=== PATIENT | female | born 1985 | race Caucasian/White ===

== ENCOUNTER 2024-11-09 13:44 | Inpatient (IN) | payer OTHER, SELFPAY ==
[2024-11-08 18:51] VITALS: BP 135/86
[2024-11-08 19:14] LABS: % Basophils 0.3 % (0-2); % Eosinophils 2.3 % (0-6); % Immature Granulocytes 0.2 % (0-0.5); % Lymphocytes 35.5 % (20.5-51.1); % Monocytes 4.9 % (1.7-9.3); % Neutrophils 56.8 % (42.2-75.2); Absolute Eosinophils 0.1 10^3/uL (0-0.7); Absolute Monocytes 0.3 10^3/uL (0.1-0.6); Absolute Neutrophils 3.3 10^3/uL (1.4-6.5); Hematocrit 32.4 % (37.0-47.0); Hemoglobin 9.4 g/dL (12.0-16.0); Mean Corpuscular Hgb 20.5 pg (27.0-31.0); Mean Corpuscular Volume 70.6 fL (81.0-99.0); Mean Platelet Volume 9.1 fL (7.4-10.4); Nucleated Red Blood Cells % 0 %; Platelet Count 306 10^3/uL (130-400); Red Blood Cell Count 4.59 10^6/uL (4.20-5.40); Red Cell Dist. Width 17.4 % (11.5-14.5); White Blood Cell Count 5.8 10^3/uL (4.8-10.8)
[2024-11-08 19:25] LABS: HCG, Serum Qualitative Screen Negative
[2024-11-08 19:29] LABS: ALT (SGPT) 128 U/L (0-35); AST (SGOT) 56 U/L (14-36); Albumin 4.8 g/dl (3.5-5.0); Alkaline Phosphatase 132 U/L (38-126); Blood Urea Nitrogen 10 mg/dl (7-17); Calcium 9.5 mg/dl (8.4-10.2); Carbon Dioxide 25 mmol/L (22-30); Chloride 103 mmol/L (98-107); Glucose 101 mg/dl (70-99); Potassium 4.5 mmol/L (3.5-5.1); Sodium 135 mmol/L (135-145); Total Bilirubin 0.7 mg/dl (0.2-1.3); Total Protein 7.8 g/dl (6.3-8.2); eGFR > 60.00
[2024-11-08 19:30] LABS: Lipase 312 U/L (23-300)
--- NOTE | 2024-11-08 20:27 | ED.GENMED ---
History of Present Illness
General
Chief Complaint: Abdominal Pain
Time Seen by Provider: 11/08/24 20:12
History of Present Illness
History of Present Illness:
39-year-old female presents the emergency department for evaluation of upper abdominal pain. She was admitted to [facility] on November 06 with a diagnosis of choledocholithiasis. She was noted to have mild transaminitis and underwent
ultrasound which revealed suspected filling defect within the common bile duct. Subsequent MRCP confirmed the diagnosis of a mid common bile duct stone. [facility] did not have ERCP capabilities, it appears that there was a discussion
with the patient about potentially transferring her to [place] for the procedure however for some reason it is not immediately known this was aborted and the patient was discharged on Augmentin. She has not taken the antibiotic yet. She denies any
fevers and chills and reports pain is improved to some degree.
Review of Systems
Review of Systems
Allergies reviewed?: Yes
All Other Systems: ROS reviewed and negative except as documented in HPI and ROS
Phy Exam
Physical Exam
Physical Exam:
GEN: Well appearing, NAD, WDWN
HEENT: Oral mucosa moist, no scleral icterus
Cardiac: Regular rate
Lung: No respiratory distress, no tachypnea
Abdomen: Soft, grossly nontender
MSK: No gross deformity or injuries
Skin: Good color, no pallor or jaundice, no rashes
Neuro: AO x3, moves all extremities freely
Psych: Calm, cooperative
Course
Orders/Labs/Results
Orders:
Orders
11/08/24 Dinner
Clear Liquid
At Your Request: Full Participation
11/08/24 18:54
Test Result ONCE
11/08/24 19:02
Complete Blood Count/With Diff Urgent
Comprehensive Metabolic Panel Urgent
HCG, Serum Qualitative Screen Urgent
Lipase Urgent
11/08/24 20:27
US Abdomen Complete/Upper Urgent
Comment:
Reason For Exam: choledocholithiasis
11/08/24 22:00
Piperacillin/Tazo 3.375 Gram [Zosyn] 3.375 gram in 50 ml IV NOW
11/08/24 22:19
Admit/Transfer Patient As Directed
Co-Sign Provider:
Level of Care: Observation services
Assign to:: Medical/Surgical
Physician / Group: myke
Diagnosis: choledocolithiasis
PRN Pain Medication Management As Directed
May give lesser potent ordered pain med per pt: Yes
preference::
Protocol:: Medication orders for pain may be administered in a
manner that supports deferring to patient preference
when the pt is:
- Requesting an ordered lesser potent pain medication.
Least to most potent pain medications are defined
as: acetaminophen < NSAID < tramadol < opioids
(morphine, oxycodone, hydromorphone).
- Requesting a lesser dose of the same medication IF
ORDERED.
- Requesting a less intrusive route of administration
if both routes are prescribed by the provider (PO <
IV).
11/08/24 22:20
Code Status As Directed
Resuscitation Status: Full Code
11/08/24 23:00
HYDROmorphone [Dilaudid] 0.5 mg IV Q4HPRN PRN
11/08/24 23:00
Consult Notification Routine
Specialty to Notify: Gastroenterology
GASTROINTESTINAL CONSULT Routine
Consulting Provider: Jacquie Lakhani
Was physician already notified: No
Reason for consult: choledoco
Activity As Directed
Activity Level: As Tolerated
Vital Signs As Directed
Frequency: Per unit guidelines
DX Deep Vein Thrombosis Video Routine
11/09/24 04:00
Piperacillin/Tazo 3.375 Gram [Zosyn] 3.375 gram in 50 ml IV Q6H
11/09/24 Breakfast
NPO
Allow oral meds: Yes
Allow clear liquids: Sips of Clears
Complete Blood Count/With Diff IN AM
Comprehensive Metabolic Panel IN AM
11/09/24 08:00
Heparin 5,000 units SC Q12
Abnormal Lab Results
11/08/24
19:02
Hgb 9.4 L g/dL
(12.0-16.0)
Hct 32.4 L %
(37.0-47.0)
MCV 70.6 L fL
(81.0-99.0)
MCH 20.5 L pg
(27.0-31.0)
MCHC 29.0 L g/dL
(33.0-37.0)
RDW 17.4 H %
(11.5-14.5)
Glucose 101 H mg/dl
(70-99)
AST 56 H U/L
(14-36)
ALT 128 H U/L
(0-35)
Alkaline Phosphatase 132 H U/L
(38-126)
Lipase 312 H U/L
(23-300)
11/08/24 19:02
11/08/24 19:02
Vital Signs
Initial and Last Documented VS:
Initial Vital Signs
Temp Pulse Resp BP Pulse Ox
98.7 F 98 18 135/86 98
11/08/24 18:51 11/08/24 18:51 11/08/24 18:51 11/08/24 18:51 11/08/24 18:51
Last Documented Vital Signs
Temp Pulse Resp BP Pulse Ox
98.2 F 79 16 140/95 100
11/08/24 23:08 11/08/24 23:08 11/08/24 23:08 11/08/24 23:08 11/08/24 23:08
MDM/Problems Addressed
MDM/Problems Addressed:
Ultrasound today is essentially unchanged, will admit for GI evaluation and ERCP given MRI findings from yesterday. IV antibiotics given for prophylaxis of cholangitis
*Critical Care Note
Total Time (30-74mins, 75-104mins- exclusive of procedures): Not Applicable
ED Attending Note
-
Portions of this chart may have been created with voice recognition software.� Occasional wrong word or��sound alike� substitutions may have occurred due to the inherent limitations of voice recognition software.
Discharge Plan
Departure
Patient Disposition: Admit
Date of Disposition: 11/08/24
Time of Disposition: 22:02
Admit to: Med/Surg
Presentation/result/management discussed w/ accepting MD/DO: Hospitalist
Discharge Problem:
Choledocholithiasis
Interventions
Interventions:
*Risk Screen - Suicide Last Done: 11/08/24 23:10
*General Assessment Last Done: 11/08/24 18:51
*Neglect/Abuse Screening Last Done: 11/08/24 18:51
ED- Fall Risk Assessment Last Done: 11/08/24 20:33
*ED COVID-19 Vaccine History Last Done: 11/08/24 18:51
*Nursing Disposition Last Done: 11/08/24 22:59
PG-Vtengm-Ovtybjkpnm Assessment Last Done: 11/08/24 20:33
Discharge Date and Time
Discharge Date/Time: 11/08/24 23:00
[2024-11-08 20:32] VITALS: BP 120/66
[2024-11-08 20:33] VITALS: BMI 32.0
--- NOTE | 2024-11-08 22:24 | HPS.HSE ---
Family Physician
-
Family Physician: Cecile Russ
Chief Complaint
-
abdominal pain
History of Present Illness
39-year-old female past medical history of choledocholithiasis presenting with upper abdominal pain. She originally developed severe epigastric pain radiating to the back starting 4 days ago. This improved and then got worse again 3 days ago. She
was admitted to [facility] on November 06 and diagnosed with choledocholithiasis. She was noted to have mild transaminitis and underwent ultrasound which revealed suspected filling defect within the common bile duct. Subsequent MRCP
confirmed diagnosis of mid common bile duct stone. [facility] did not have ERCP capabilities and there was discussion about being transferred to [place] versus leaving to another hospital with ERCP capabilities. Patient chose to leave the
hospital and come here.
She drinks alcohol occasionally. Denies smoking. Denies marijuana use.
Family history mother with gallstones.
Medical History
Past Medical History
Past Medical History: Reports Other (choledocholithiasis)
Past Surgical History: Reports None and Tonsilectomy
Social History
Tobacco: Non-smoker
Alcohol: Occasional
Drug: None
Family History
Family History: Not pertinent
Allergies / Home Medications
Allergies reflects when Allergies were last updated in [employer].
Home Medications with original date entered in [employer]
Allergy/Medication List:
Allergies
Allergy/AdvReac Type Severity Reaction Status Date / Time
No Known Allergies Allergy Unverified 11/08/24 18:54
Home Medications
No Meds [No Current Medications] 11/08/24
Review of Systems
-
History Source: Patient
A 12 point ROS was completed and negative except as noted: Yes
Constitutional: Reports No Symptoms
EENT: Reports No Symptoms
Respiratory: Reports No Symptoms
Cardiac: Reports No Symptoms
Abdomen/GI: Reports See HPI
: Reports No Symptoms
Musculoskeletal: Reports No Symptoms
Skin: Reports No Symptoms
Neurological: Reports No Symptoms
Endocrine: Reports No Symptoms
Hematologic/Lymphatic: Reports No Symptoms
Psych: Reports No Symptoms
Physical Exam
Vital Signs
Vital Signs
Temp Pulse Resp BP Pulse Ox
98.7 F 80 16 120/66 98
11/08/24 18:51 11/08/24 20:33 11/08/24 20:33 11/08/24 20:32 11/08/24 20:45
Physical Exam
General: Well Developed, Well Nourished and No Apparent Distress
HEENT: NormoCephalic, Moist mucous membranes and Atraumatic
Respiratory: Clear
Cardiac: S1/S2 and Regular Rhythm; No Murmur or Rub
GI: Soft, Non Distended, Normal Bowel Sounds and Tender (epigastric ); No Organomegaly
Rectal: Deferred by Provider
Musculoskeletal: No Clubbing, No Cyanosis and No Edema
Skin: No Rash
Neuro: Nonfocal/grossly intact
Laboratory Results
-
11/08/24 19:02
11/08/24 19:02
Laboratory Results
Total Bilirubin 0.7 mg/dl (0.2-1.3) 11/08/24 19:02
AST 56 U/L (14-36) H 11/08/24 19:02
ALT 128 U/L (0-35) H 11/08/24 19:02
Alkaline Phosphatase 132 U/L (38-126) H 11/08/24 19:02
Lipase 312 U/L (23-300) H 11/08/24 19:02
Data Reviewed
-
Lab Data: Labs Reviewed by me
Old Records: Reviewed
Impression/Plan
-
IMPRESSION:
PLAN:
# Choledocholithiasis
-Patient with mild transaminitis without hyperbilirubinemia
-Labs from 11/06 showed LFTs up to 200 with normal bilirubin at that time as well
-MRCP 11/06 showed filling defects in the gallbladder suggesting gallstones, distal common bile duct is nondilated, 6 mm filling defect in the mid common bile duct could represent intraluminal calculus
-Clear liquid diet, n.p.o. past midnight
-Zosyn
-Dilaudid as needed
-GI consulted
Full code
DVT prophylaxis�heparin
Clears, n.p.o. past midnight
[2024-11-08] MEDS: ZOSYN 50 IV (22:39)
[2024-11-08 22:41] VITALS: BP 127/90
--- NOTE | 2024-11-08 23:00 | PTCARENOTE ---
Received pt from ED. Pt walked to bed from stretcher.
[2024-11-08 23:08] VITALS: BP 140/95; BMI 31.5
[2024-11-09] VITALS (8 sets, daily range): BP systolic 11–130; BP diastolic 76–86
[2024-11-09] MEDS: ZOSYN 50 IV ×4 (04:00→22:20)
[2024-11-09 06:20] LABS: % Basophils 0.5 % (0-2); % Eosinophils 1.7 % (0-6); % Immature Granulocytes 0.2 % (0-0.5); % Lymphocytes 40.3 % (20.5-51.1); % Monocytes 6.1 % (1.7-9.3); % Neutrophils 51.2 % (42.2-75.2); Absolute Eosinophils 0.1 10^3/uL (0-0.7); Absolute Lymphocytes 2.3 10^3/uL (1.2-3.4); Absolute Monocytes 0.4 10^3/uL (0.1-0.6); Hematocrit 26.9 % (37.0-47.0); Mean Corp Hgb Conc. 29.7 g/dL (33.0-37.0); Mean Corpuscular Hgb 20.6 pg (27.0-31.0); Mean Corpuscular Volume 69.3 fL (81.0-99.0); Mean Platelet Volume 9.6 fL (7.4-10.4); Nucleated Red Blood Cells % 0 %; Platelet Count 251 10^3/uL (130-400); Red Blood Cell Count 3.88 10^6/uL (4.20-5.40); Red Cell Dist. Width 17.3 % (11.5-14.5); White Blood Cell Count 5.8 10^3/uL (4.8-10.8)
[2024-11-09 06:47] LABS: ALT (SGPT) 99 U/L (0-35); AST (SGOT) 41 U/L (14-36); Albumin 3.9 g/dl (3.5-5.0); Alkaline Phosphatase 114 U/L (38-126); Blood Urea Nitrogen 8 mg/dl (7-17); Calcium 9.1 mg/dl (8.4-10.2); Carbon Dioxide 23 mmol/L (22-30); Chloride 104 mmol/L (98-107); Estimated Creatinine Clearance 108 ml/min; Glucose 93 mg/dl (70-99); Potassium 4.5 mmol/L (3.5-5.1); Sodium 138 mmol/L (135-145); Total Bilirubin 0.6 mg/dl (0.2-1.3); Total Protein 6.5 g/dl (6.3-8.2); eGFR > 60.00
--- NOTE | 2024-11-09 09:31 | CON.GI ---
Addendum entered and electronically signed by Jacquie Lakhani MD 11/09/24 11:58:
I saw and examined the patient.
The SEBD TEACHER's note was reviewed and I agree with the note.
Comment: This is a 39-year-old female who started to have epigastric pain radiating to the back which started about 6 to 7 days ago she initially presented to [facility] on November 06 was diagnosed with choledocholithiasis but since they did
not have the GI services to perform an ERCP they had initiated transfer to [place] but since there was no bed available she opted to be discharged and presented to [facility] instead. She says her pain has improved but still present no nausea
vomiting no fevers or chills. No rectal bleeding or melena. She also has a history of anemia and she says she had workup a couple of years ago with hematology and was told that she may have thalassemia has not followed up since. She says her
menstrual period is not heavy she was also noted to have iron deficiency and B12 deficiency.
Assessment and plan 1. Choledocholithiasis as noted on MRCP at outside hospital on 11/06 and her LFTs are minimally elevated with transaminase elevation bilirubin and alkaline phosphatase is normal. For ERCP +/- EUS with Dr. Wallace today. Will need
eventual cholecystectomy also, timing inpatient versus outpatient will defer to surgery
2. Microcytic anemia with iron deficiency anemia with a ferritin of 9 on 11/07/2024 and B12 deficiency 182 from labs at the outside hospital. Will need B12 injections(started today) initially followed by oral B12 and oral iron supplements with
vitamin C and follow-up with hematology as outpatient also has remote history of possible thalassemia. She denies heavy periods will need endoscopic workup as outpatient also.
Original Note:
Consultation
-
Date/Time Consultation Requested: 11/08/24 2300
Date/Time Consultation Performed: 11/09/24 0830
Requesting Provider: Dr. Michel
Performing Provider: Dr. Lakhani/KHANH Poe
Reason for Consultation: choledocholithiasis
Medical History
Chief Complaint / HPI
Chief Complaint: abd pain, choledocholihiasis
History of Present Illness:
39-year-old male with past medical history of cholelithiasis and choledocholithiasis diagnosed on 11/06/2024 at [facility] otherwise no significant past medical history presents to [facility] after having been diagnosed previously
at outside hospital with the same. Initially patient states that she ate [employer] roast beef and cheese as well as Lithuanian fries on Tuesday. Couple hours later she developed epigastric discomfort that was dull pressure-like. This went away after
couple hours. The pain recurred again on Tuesday and then went away. On Tuesday the pain came back. She knew she had to seek further evaluation. At that point she went to [facility] for evaluation. There she had ultrasound that showed
CBD stone. Also had MRI that confirmed presence of a 6 mm mid common bile duct CBD stone without ductal dilatation. They do not have the capability of ERCP and transfer to [facility] was initiated however there were no beds
available. The patient sought out alternate hospitals that had this capability bringing her to [facility]. The patient states that intermittently she has had abdominal discomfort that waxes and wanes. Presently she is comfortable. She
does not smoke. She does not drink any alcohol. She takes no medications. Only surgery was tonsillectomy. I was able to review ultrasound as well as MRI from [facility]. She did meet with general surgeon there and plans on elective
outpatient cholecystectomy after discharge. The patient at present time denies any fevers, chills, nausea, vomiting, melena, hematochezia, dysphagia or odynophagia. No early satiety or unintentional weight loss. No acholic stools or
bilirubinuria. She has a family history of colon cancer in an uncle. No first-degree relatives. She has never had an endoscopy or colonoscopy before. She does have an iron deficiency and B12 deficiency anemia which I recommend she follow-up with
her PCP for further evaluation.
Past Medical History
Past Medical History: Other (Cholelithiasis, choledocholithiasis)
Past Surgical History: Tonsilectomy
Social History
Tobacco: Non-Smoker
Alcohol: None
Drug: None
Personal:
Living: With Family
Family History
Family History: Other (Uncle, colon cancer otherwise no family history of gastrointestinal malignancy or IBD)
Allergies / Home Medications
Allergy/AdvReac Type Severity Reaction Status Date / Time
No Known Allergies Allergy Unverified 11/08/24 18:54
�Medication �Instructions �Recorded
No Meds [No Current Medications] 11/08/24
Review of Systems
-
All other systems: A 12 pt ROS was Negative except as stated above in HPI
Vital Signs
Temp Pulse Resp BP Pulse Ox
98.2 F 110 18 128/80 100
11/09/24 07:15 11/09/24 07:15 11/09/24 07:15 11/09/24 07:15 11/09/24 07:15
Physical Exam
Exam
General: Well Nourished
HEENT: Anicteric
Respiratory: Clear
Cardiac: Regular Rhythm
GI: Soft, Non Tender, Non Distended and Normal Bowel Sounds
Musculoskeletal: No Edema
Skin: Warm and Dry
Neuro: AO x 3
Psych: Calm
Results
WBC 5.8 10^3/uL (4.8-10.8) 11/09/24 04:46
Hgb 8.0 g/dL (12.0-16.0) L 11/09/24 04:46
Hct 26.9 % (37.0-47.0) L 11/09/24 04:46
MCV 69.3 fL (81.0-99.0) L 11/09/24 04:46
Plt Count 251 10^3/uL (130-400) 11/09/24 04:46
Absolute Neuts (auto) 3.0 10^3/uL (1.4-6.5) 11/09/24 04:46
Sodium 138 mmol/L (135-145) 11/09/24 04:46
Potassium 4.5 mmol/L (3.5-5.1) 11/09/24 04:46
Chloride 104 mmol/L (98-107) 11/09/24 04:46
Carbon Dioxide 23 mmol/L (22-30) 11/09/24 04:46
BUN 8 mg/dl (7-17) 11/09/24 04:46
Creatinine 0.8 mg/dL (0.6-1.0) 11/09/24 04:46
Calcium 9.1 mg/dl (8.4-10.2) 11/09/24 04:46
Total Bilirubin 0.6 mg/dl (0.2-1.3) 11/09/24 04:46
AST 41 U/L (14-36) H 11/09/24 04:46
ALT 99 U/L (0-35) H 11/09/24 04:46
Alkaline Phosphatase 114 U/L (38-126) 11/09/24 04:46
Lipase 312 U/L (23-300) H 11/08/24 19:02
Diagnostic Image Results:
Ultrasound abdomen 11/08/2024 [facility]:IMPRESSION:
Multiple gallstones within the gallbladder. Gallbladder wall appears slightly thickened with a negative sonographic Araujo's sign. Please correlate with clinical symptoms that would suggest acute cholecystitis.
No gross evidence for intrahepatic bile duct dilation. The common bile duct is unable to be adequately visualized.
Limited visualization of the liver with no gross hepatic lesion.
Splenic size is in the upper range of normal, maximum dimension of 12.4 cm.
The pancreas is unable to be visualized. The upper abdominal IVC and the upper abdominal aorta are unable to be adequately visualized.
Labs 11/07/2024 [facility]: Iron 12, TIBC 332, ferritin 9, B12 182, folate 7.4, WBC 4.8, hemoglobin 8.3, hematocrit 25.7, MCV 64.5, MCH 20.9, platelets 249, sodium 141, potassium 3.7, BUN 6, creatinine 0.71, glucose 95, total bilirubin 0.4,
AST 191, ALT 213, alk phos 133, lipase 72
MRI with MRCP 11/07/2024 [facility]: Filling defects in the gallbladder suggestive gallstones. Distal CBD nondilated. 6 mm filling defect in the mid common bile duct which could represent intraluminal calculus. Distalmost aspect of the
CBD was not opacified. PD is suboptimally visualized. Intrahepatic ducts appear nondilated.
Ultrasound abdomen 11/06/2024 [facility]: Gallstones. Without evidence of acute cholecystitis. Mild common duct dilatation with suspected choledocholithiasis.
Prior GI Procedures:
EGD: Never
Colonoscopy: Never
Assessment / Plan
-
39-year-old male with past medical history of cholelithiasis and choledocholithiasis diagnosed on 11/06/2024 at [facility] otherwise no significant past medical history presents to [facility] after having been diagnosed previously
at outside hospital with the same. Confirmation with MRI on 11/06/2024 from [facility] as well as ultrasound. Still with transaminitis. Elevated lipase level. Intermittent colicky like symptoms. Reviewed MRI, ultrasound finding as well
as LFT with Dr. Wallace. Discussed with patient risk-benefit ratio alternatives about EUS/ERCP. Patient willing to proceed. Wishes to pursue elective cholecystectomy as an outpatient. EUS/ERCP planned for today. Patient remains n.p.o.
Impression:
Choledocholithiasis
Iron deficiency/B12 deficiency anemia
Plan:
-EUS/ERCP today
-N.p.o.
-Follow-up with surgery for outpatient elective cholecystectomy
-Follow-up with PCP for iron deficiency anemia.
-Will give patient our card if she wishes she can follow-up with us as an outpatient for iron deficiency as well after PCP evaluation.
-Further recommendations to be forthcoming after procedure
-
-
Thank you for consultation and allowing me to participate in the patient's care. Please call the consolidator GI physician during the after hours with any questions or concerns.
--- NOTE | 2024-11-09 10:29 | W.PN.HOSP.TC ---
Today's Communication/Plan
-
see A/P
Assessment / Plan
Assessment / Plan
HPI: 39-year-old female past medical history of choledocholithiasis; p/w upper abdominal pain. She originally developed severe epigastric pain that radiated to the back that started 4 days ago. This improved but got worse again 3 days ago. She was
admitted to [facility] on November 06 and was diagnosed with choledocholithiasis. She was noted to have mild transaminitis and underwent ultrasound which revealed suspected filling defect within the common bile duct. Subsequent MRCP
confirmed diagnosis of mid common bile duct stone. [facility] did not have ERCP capabilities and there was discussion about being transferred to [place] versus leaving to another hospital with ERCP capabilities. Patient chose to leave the
hospital and come to .
She drinks alcohol occasionally. Denies smoking. Denies marijuana use.
Family history mother with gallstones.
A/P:
# Choledocholithiasis
# Mild transaminitis without hyperbilirubinemia
MRCP 11/06 showed filling defects in the gallbladder suggesting gallstones, distal common bile duct is nondilated, 6 mm filling defect in the mid common bile duct could represent intraluminal calculus
GI CS for ERCP
Cont empiric Zosyn
Pain control with Dilaudid
Pt states that she prefers to follow up with [facility] for lap zuleyka. Hence will not CS [facility]
Full code
DVT prophylaxis�heparin SQ
Anticipated Discharge: Within 24 hours
Subjective/Interval History
-
Date of Service: November 09, 2024
Objective Data
-
Labs:
Laboratory Results
11/09/24
04:46
WBC 5.8
Hgb 8.0 L
Hct 26.9 L
Plt Count 251
Sodium 138
Potassium 4.5
Chloride 104
Carbon Dioxide 23
BUN 8
Creatinine 0.8
Glucose 93
Calcium 9.1
Total Bilirubin 0.6
AST 41 H
ALT 99 H
Alkaline Phosphatase 114
Vital Signs:
Vital Signs
Temp Pulse Resp BP Pulse Ox
36.8 C 110 18 128/80 100
11/09/24 07:15 11/09/24 07:15 11/09/24 07:15 11/09/24 07:15 11/09/24 07:15
I&O
11/08/24 11/09/24 11/10/24
06:59 06:59 06:59
Intake Total 50 / 50
Balance 50 / 50
Review of Systems
-
All other systems: Reviewed and negative
Abdomen/GI: Denies Abdominal Pain
Physical Exam
-
General: Well Developed, Well Nourished, No Apparent Distress, Comfortable, Conversant and Obese; Negative Respiratory Distress
HEENT: Normocephalic, Atraumatic, Nose Appears Normal and Ears Appear Normal; Negative Oxygen
Respiratory: Clear to Auscultation and Non Labored Respirations; Negative Accessory Resp Muscle Use
Cardiac: Regular Rhythm and S1/S2
GI: Soft, Nontender, Nondistended and Normal Bowel Sounds
Skin: Warm and Dry
Neuro: Awake, Alert, Oriented and AO x 3
Psych: Calm and Intact Judgement/Insight
Data Reviewed
-
Labs: Labs Reviewed by me
[2024-11-09] MEDS: CYANOCOBALAMIN 1000 MCG IM (12:50)
--- NOTE | 2024-11-09 16:06 | CM ---
Addendum entered by Nusrat Ornelas RN 11/09/24 16:09:
Pt changed to inpatient from Observation .
Original Note:
Alert awake oriented patient who lives with her mom Fabby in a 2 story home with 0 steps to enter and bed/bathroom on first floor. She is independent in activates of daily living.She does drive .Offered VN she declined need.
No VN in past . No SNF hx
Pharmacy [facility]
PCP Dr Cecile Russ
PLAN Home with no needs
--- NOTE | 2024-11-09 17:41 | PTCARENOTE ---
Pt returned to 2S via stretcher, ambulated to bed independently gait steady. CLD reviewed with pt, pt verbalized understanding. Pt offers no complaints at this time. Bed locked and in the lowest position, safety maintained. Oriented to room and call
mae.
[2024-11-10] MEDS: ZOSYN 50 IV ×2 (04:30→09:20)
[2024-11-10 07:05] VITALS: BP 119/79
[2024-11-10] MEDS: CYANOCOBALAMIN 1000 MCG IM (09:20)
--- NOTE | 2024-11-10 09:29 | W.PN.GI.CBS2 ---
Today's Communication / Plan
-
LFT
Ok for Dc for OP CCY per patient choice
Assessment / Plan
-
39-year-old male with past medical history of cholelithiasis and choledocholithiasis diagnosed on 11/06/[address] [facility] otherwise no significant past medical history presents to [facility] after having been diagnosed previously
at outside hospital with the same. Confirmation with MRI on 11/06/[address] [facility] as well as ultrasound. Still with transaminitis. Elevated lipase level. Intermittent colicky like symptoms. Reviewed MRI, ultrasound finding as well
as LFT with Dr. Wallace. Discussed with patient risk-benefit ratio alternatives about EUS/ERCP. Patient willing to proceed. Wishes to pursue elective cholecystectomy as an outpatient. EUS/ERCP planned for today. Patient remains n.p.o.
Impression:
Choledocholithiasis
Iron deficiency/B12 deficiency anemia
Plan:
- EUS 11/09 with no CBD stone likely passed
-Will start low-fat diet and if tolerates okay to DC home
-Patient wants to schedule cholecystectomy as outpatient
-Told her to follow-up with hematology for possible thalassemia diagnosed in the past and also iron deficiency anemia and B12 def may need iron infusions if not responding to oral iron
-B12 deficiency continue B12 injections as outpatient
-Will also likely need endoscopy and colonoscopy as outpatient for iron deficiency anemia denies menorrhagia and also uncle had colon cancer she is going to decide whether she wants to follow-up with us or GI group closer to her
Subjective
Subjective
Date of Service: November 10, 2024
No further pain
Anxious to go home
No nausea or vomiting no fevers or chills
Objective
Data Reviewed
Laboratory Data:
Laboratory Results
Total Bilirubin 0.6 mg/dl (0.2-1.3) 11/09/24 04:46
AST 41 U/L (14-36) H 11/09/24 04:46
ALT 99 U/L (0-35) H 11/09/24 04:46
Alkaline Phosphatase 114 U/L (38-126) 11/09/24 04:46
Lipase 312 U/L (23-300) H 11/08/24 19:02
Vital Signs and I&O:
Vital Signs
Temp Pulse Resp BP Pulse Ox
97.9 F 65 16 119/79 98
11/10/24 07:05 11/10/24 07:05 11/10/24 07:05 11/10/24 07:05 11/10/24 07:05
I&O
11/09/24 11/10/24 11/11/24
06:59 06:59 06:59
Intake Total 50 / 50 630 / 630
Balance 50 / 50 630 / 630
11/09/24 EUS Impression: - There was no sign of significant pathology in the
common bile duct.
- Multiple stones were visualized endosonographically
in the gallbladder body.
- Pancreatic parenchymal abnormalities consisting of
hyperechoic strands, hyperechoic foci and lobularity
were noted in the pancreatic head and pancreatic body.
- Main pancreatic duct (MPD) diameter was measured.
Endosonographically, the MPD had a normal appearance.
- There was no sign of significant pathology in the
ampulla.
- There was no evidence of significant pathology in
the left lobe of the liver.
- No specimens collected.
Physical Exam
Physical Exam
Cardiology: Normal Sinus Rhythm
Pulmonary: Clear
GI: Soft, Non Distended, Non Tender and Normal Bowel Sounds
[2024-11-10 09:35] LABS: Hematocrit 28.7 % (37.0-47.0); Hemoglobin 8.5 g/dL (12.0-16.0); Mean Corp Hgb Conc. 29.6 g/dL (33.0-37.0); Mean Corpuscular Hgb 20.4 pg (27.0-31.0); Mean Corpuscular Volume 68.8 fL (81.0-99.0); Mean Platelet Volume 9.3 fL (7.4-10.4); Platelet Count 262 10^3/uL (130-400); Red Blood Cell Count 4.17 10^6/uL (4.20-5.40); Red Cell Dist. Width 17.3 % (11.5-14.5); White Blood Cell Count 4.5 10^3/uL (4.8-10.8)
--- NOTE | 2024-11-10 09:49 | W.PN.HOSP.TC ---
Addendum entered and electronically signed by Adrienne Mckinney MD 11/10/24 14:06:
total DC time 36 min
Original Note:
Today's Communication/Plan
-
see A/P
Assessment / Plan
Assessment / Plan
HPI: 39-year-old female past medical history of choledocholithiasis; p/w upper abdominal pain. She originally developed severe epigastric pain that radiated to the back that started 4 days ago. This improved but got worse again 3 days ago. She was
admitted to [facility] on November 06 and was diagnosed with choledocholithiasis. She was noted to have mild transaminitis and underwent ultrasound which revealed suspected filling defect within the common bile duct. Subsequent MRCP
confirmed diagnosis of mid common bile duct stone. [facility] did not have ERCP capabilities and there was discussion about being transferred to [place] versus leaving to another hospital with ERCP capabilities. Patient chose to leave the
hospital and come to .
She drinks alcohol occasionally. Denies smoking. Denies marijuana use.
Family history mother with gallstones.
A/P:
# Choledocholithiasis
# Mild transaminitis without hyperbilirubinemia
MRCP 11/06 showed filling defects in the gallbladder suggesting gallstones, distal common bile duct is nondilated, 6 mm filling defect in the mid common bile duct could represent intraluminal calculus
s/p EUS 11/09 with no CBD stone, likely passed
Patient wants to schedule cholecystectomy as outpatient
# h/o iron def anemia
Can follow up with hematology outpt for possible thalassemia work up
Can also consider outpt EGD for MARK
# B12 deficiency
continue B12 injections as outpatient
Full code
DVT prophylaxis�heparin SQ
Anticipated Discharge: Today
Subjective/Interval History
-
Date of Service: November 10, 2024
Objective Data
-
Labs:
Laboratory Results
11/10/24
09:27
WBC 4.5 L
Hgb 8.5 L
Hct 28.7 L
Plt Count 262
Sodium Pending
Potassium Pending
Chloride Pending
Carbon Dioxide Pending
BUN Pending
Creatinine Pending
Glucose Pending
Calcium Pending
Total Bilirubin Pending
AST Pending
ALT Pending
Alkaline Phosphatase Pending
Vital Signs:
Vital Signs
Temp Pulse Resp BP Pulse Ox
36.6 C 65 16 119/79 98
11/10/24 07:05 11/10/24 07:05 11/10/24 07:05 11/10/24 07:05 11/10/24 07:05
I&O
11/09/24 11/10/24 11/11/24
06:59 06:59 06:59
Intake Total 50 / 50 630 / 630
Balance 50 / 50 630 / 630
Review of Systems
-
All other systems: Reviewed and negative
Abdomen/GI: Denies Abdominal Pain
Physical Exam
-
General: Well Developed, Well Nourished, No Apparent Distress, Comfortable, Conversant and Obese; Negative Respiratory Distress
HEENT: Normocephalic, Atraumatic, Nose Appears Normal and Ears Appear Normal; Negative Oxygen
Respiratory: Clear to Auscultation and Non Labored Respirations; Negative Accessory Resp Muscle Use
Cardiac: Regular Rhythm and S1/S2
GI: Soft, Nontender, Nondistended and Normal Bowel Sounds
Skin: Warm and Dry
Neuro: Awake, Alert, Oriented and AO x 3
Psych: Calm and Intact Judgement/Insight
Data Reviewed
-
Labs: Labs Reviewed by me
[2024-11-10 10:06] LABS: ALT (SGPT) 86 U/L (0-35); AST (SGOT) 45 U/L (14-36); Albumin 3.8 g/dl (3.5-5.0); Alkaline Phosphatase 99 U/L (38-126); Blood Urea Nitrogen 6 mg/dl (7-17); Calcium 9.2 mg/dl (8.4-10.2); Carbon Dioxide 26 mmol/L (22-30); Chloride 104 mmol/L (98-107); Estimated Creatinine Clearance 123 ml/min; Glucose 101 mg/dl (70-99); Potassium 4.4 mmol/L (3.5-5.1); Sodium 137 mmol/L (135-145); Total Bilirubin 0.6 mg/dl (0.2-1.3); Total Protein 6.7 g/dl (6.3-8.2); eGFR > 60.00
[2024-11-10 10:55] VITALS: BP 131/81
--- NOTE | 2024-11-10 11:28 | CM ---
Reviewed the chart. Patient is discharged today. CM continues to be available to patient/family and is monitoring medical plan for needs at discharge.
Plan: Discharge to home with no needs.
--- NOTE | 2024-11-10 13:52 | W.DCSUMMARY ---
Discharge Summary
Discharge Data
Date of Admission: 11/09/24
Date of Discharge: 11/10/24
-
Pending Results: No
Hospital Course
Principal Diagnosis:
Right upper quadrant abdominal pain, likely due to passed choledocholithiasis
Mild transaminitis without hyperbilirubinemia
Chronic Diagnoses:�
Choledocholithiasis
Severe microcytic anemia, can follow up with hematology outpatient for possible thalassemia work up
History of iron deficiency anemia. Can follow-up with GI outpatient for consideration of endoscopy
B12 deficiency on B12 injections as outpatient
Consultations:�
Gastroenterology
Procedures:�
EUS 11/09 with no common bile duct stone seen, likely passed
Clinical course:�
This is a 39-year-old female with past medical history as stated above who presented with right upper quadrant abdominal pain.
She originally developed severe epigastric pain that radiated to the back that started 4 days prior to admission. She was admitted to [facility] [address] on November 06 and was diagnosed with choledocholithiasis. She was noted to have mild
transaminitis and underwent ultrasound which revealed suspected filling defect within the common bile duct. Her subsequent MRCP confirmed diagnosis of mid common bile duct stone. [facility] did not have ERCP capabilities and there was
discussion about transferring the patient to [place] versus leaving to another hospital with ERCP capabilities. Patient chose to leave the hospital and come to .
Problem 1:
Right upper quadrant abdominal pain, likely due to passed choledocholithiasis.
This was associated with mild transaminitis without hyperbilirubinemia.
Her MRCP from outside hospital on 11/06 showed filling defects in the gallbladder suggesting gallstones, distal common bile duct is nondilated, 6 mm filling defect in the mid common bile duct could represent intraluminal calculus.
She underwent EUS on 11/09 at [facility], which did not show common bile duct stone, hence it is likely that the gallstone has passed.
She has been informed to follow-up with surgery outpatient for cholecystectomy evaluation.
As for the rest of her medical problems, they were stable during her hospital stay.
Discharge Plan
-
Patient Disposition: Home (Routine Discharge)
Discharge Diagnosis/Procedures: Choledocholithiasis with likely passed stones;
status post ERCP this admission without any common bile duct pathology noted;
History of iron deficiency anemia;
History of B12 deficiency
Condition: Good
Diet: As tolerated, Low Fat and Low Cholesterol
Activity: As tolerated
Driving Restrictions: As prior to admission
Blood Work: CBC and CMP in 1 week, result to PCP
Activity Restrictions/Additional Instructions:
Follow up with surgery outpatient for schedule cholecystectomy as outpatient.
Follow up with hematology for possible thalassemia work up.
Follow up with GI for EGD consideration for your iron deficient anemia.
Referrals:
Cecile Russ DO [Family Provider] - in less than 1 week
Aneudy Erickson MD [Active] - (Follow-up with general surgery for routine outpatient lap zuleyka evaluation)
Prescriptions:
No Action
No Current Medications
0
Discharge Orders:
Discharge Patient (As Directed); Ordered 11/10/24
Ordered By: Adrienne Mckinney
Discharge Date and Time
Discharge Date/Time: 11/10/24 11:30
Print Language: AMHARIC
== END 2024-11-10 11:30 | disposition home or self-care (01) | DRG 446 ==
LOC: 2 SOUTH 13:44
PROVIDERS: Emergency Medicine; Internal Medicine Gastroenterology; ADMITTING PHYSICIAN Hospitalist; ATTENDING PHYSICIAN Internal Medicine; CONSULT PHYSICIAN Internal Medicine Gastroenterology; EMERGENCY PHYSICIAN Student in an Organized Health Care Education/Training Program; FAMILY PHYSICIAN Family Medicine
PROC: 0DJ08ZZ Inspection of Upper Intestinal Tract, Via Natural or Artificial Opening Endoscopic (ICD-10-PCS; 2024-11-09)
PROC: 0FJB8ZZ Inspection of Hepatobiliary Duct, Via Natural or Artificial Opening Endoscopic (ICD-10-PCS; 2024-11-09)
DX: K80.70 Calculus of gallbladder and bile duct without cholecystitis without obstruction (principal); R74.01 Elevation of levels of liver transaminase levels; D50.9 Iron deficiency anemia, unspecified; K86.9 Disease of pancreas, unspecified; D51.9 Vitamin B12 deficiency anemia, unspecified; Z80.0 Family history of malignant neoplasm of digestive organs; Z83.79 Family history of other diseases of the digestive system
CPT/HCPCS: 76700; 80053; 83690; 84703; 85025; 85027; 99285

== ENCOUNTER 2025-01-07 06:19 | Day surgery (SDC) | payer OTHER, SELFPAY ==
[2025-01-07] VITALS (10 sets, daily range): BP systolic 117–127; BP diastolic 62–79; BMI 32.4
[2025-01-07] MEDS: TYLENOL 1000 MG PO (13:31)
[2025-01-07] MEDS: EMEND 40 MG PO (13:32)
[2025-01-07] MEDS: IC GREEN 2.5 MG IV (13:33)
[2025-01-07] MEDS: NORMOSOL-R/PLASMALYTE-A 1000 IV (13:33)
[2025-01-07] MEDS: HEPARIN 5000 UNITS SC (13:40)
--- NOTE | 2025-01-07 15:05 | OR.RPT ---
Operative Report
Operative Report
Primary Surgeon: Kellie
Assisting: Fatoumata PAULA
Pre-op Diagnosis: Biliary colic
Post-op Diagnosis: Same
Procedure Performed: Robot assisted laparoscopic cholecystectomy with cholangiogram
Anesthesia Type: GETA
Specimen / Cultures: Gallbladder
Estimated Blood Loss: 5cc
Complications: None immediate
Operative Findings: Stones milked from cystic duct, cholangiogram with good flow of contrast into duodenum, good opacification of biliary tree without filling defects
Date of Surgery:� 01/07/25
Indications: This 39F developed symptomatic cholelithiasis. Lab work showed elevated liver enzymes. Imaging showed no ductal dilation. Laparoscopic cholecystectomy with robotic assist was elected.
Description of procedure: The patient was placed on the operating table in the supine position. General anesthesia was induced. A time-out was completed verifying correct patient, procedure, site, positioning, and special equipment prior to
beginning this procedure. An orogastric tube was placed. The abdomen was prepped and draped in the usual sterile fashion. A stab incision was made in left upper quadrant and the Veress needle was inserted. Proper position was confirmed by aspiration
and saline meniscus test. The abdomen was insufflated with carbon dioxide to a pressure of 12mmHg. The patient tolerated insufflation well.
A 8mm trocar was then inserted above the umbilicus through the existing hernia defect. The laparoscope was inserted and the abdomen inspected. No injuries from initial trocar placement or Veress needle insertion were noted. Additional 8mm trocars
were then inserted in the following locations: two in the right lower quadrant and to the left of the umbilicus and just above. The abdomen was inspected and no abnormalities were found. The table was placed in the reverse Trendelenburg position
with the right side up. The dome of the gallbladder was grasped with an atraumatic grasper and retracted over the dome of the liver. The infundibulum was then grasped with an atraumatic grasper and retracted toward the right lower quadrant. This
maneuver exposed Calot�s triangle. The gallbladder was notably elongated. The peritoneum overlying the gallbladder infundibulum was then incised and the cystic duct and cystic artery identified and circumferentially dissected so that a clear view of
the liver was achieved through a window between the cystic duct an cystic artery. At this time, the only two structures going into the gallbladder were the cystic artery and cystic duct. The common duct was identified with ICG and protected.
A disha was made in the cystic duct and in the skin and a cholangiogram catheter was threaded into the cystic duct and secured with 2-0 silk tie. A cholangiogram was obtained that showed good flow of contrast into duodenum, good opacification of
biliary tree without filling defects. The catheter was withdrawn.
The cystic duct was then doubly clipped and divided. The cystic artery was controlled with bipolar and divided. The gallbladder was then dissected from its peritoneal attachments by electrocautery. The gallbladder was removed using an endoscopic
retrieval bag placed through the umbilical port. The gallbladder was passed off the table as a specimen. The gallbladder fossa was closely inspected. There was no evidence of bleeding from the gallbladder fossa or cystic artery or leakage of the
bile from the cystic duct stump. The umbilical trocar site was closed at the fascial level with 2-0 PDS. Secondary trocars were removed under direct vision and noted to be hemostatic. The abdomen was allowed to collapse. The skin was closed with
subcuticular sutures of 4-0 monocryl and topical skin adhesive. The orogastric tube was removed.
The patient tolerated the procedure well and was taken to the postanesthesia care unit in stable condition.
== END 2025-01-07 16:51 | disposition home or self-care (01) ==
LOC: SDS 06:19
PROVIDERS: ATTENDING PHYSICIAN Surgery
DX: K80.10 Calculus of gallbladder with chronic cholecystitis without obstruction (principal); K80.50 Calculus of bile duct without cholangitis or cholecystitis without obstruction; R74.01 Elevation of levels of liver transaminase levels
CPT/HCPCS: 47563; 88304; 74300; 76000; A4300